=== PATIENT | male | born 1950 | race Caucasian/White ===

== ENCOUNTER → 2024-01-30 06:30 | Day surgery (SDC) | payer MEDICARE, OTHER, SELFPAY | LOC: GI 06:30 | PROVIDERS: ATTENDING PHYSICIAN Surgery | DX: Z12.11 Encounter for screening for malignant neoplasm of colon (principal); K57.30 Diverticulosis of large intestine without perforation or abscess without bleeding; D12.0 Benign neoplasm of cecum; D12.2 Benign neoplasm of ascending colon; D12.3 Benign neoplasm of transverse colon; D12.5 Benign neoplasm of sigmoid colon | CPT/HCPCS: 45385; 45381; 45380; 88305 ==

== ENCOUNTER → 2024-07-15 06:33 | Outpatient (REF) | payer MEDICARE, OTHER, SELFPAY ==
[2024-07-15 08:09] LABS: % Basophils 0.5 % (0-2); % Eosinophils 1.5 % (0-6); % Immature Granulocytes 0.5 % (0-0.5); % Monocytes 9.3 % (1.7-9.3); % Neutrophils 76.2 % (42.2-75.2); Absolute Eosinophils 0.1 10^3/uL (0-0.7); Absolute Monocytes 0.7 10^3/uL (0.1-0.6); Absolute Neutrophils 6.1 10^3/uL (1.4-6.5); Hemoglobin 13.8 g/dL (13.0-18.0); Mean Corp Hgb Conc. 33.7 g/dL (33.0-37.0); Mean Corpuscular Hgb 29.4 pg (27.0-31.0); Mean Corpuscular Volume 87.4 fL (80.0-94.0); Mean Platelet Volume 9.7 fL (7.4-10.4); Nucleated Red Blood Cells % 0 % (-); Platelet Count 253 10^3/uL (130-400); Red Blood Cell Count 4.69 10^6/uL (4.70-6.10); Red Cell Dist. Width 14.6 % (11.5-14.5)
[2024-07-15 08:32] LABS: Blood Urea Nitrogen 26 mg/dl (9-20); Calcium 9.7 mg/dl (8.4-10.2); Carbon Dioxide 29 mmol/L (22-30); Chloride 104 mmol/L (98-107); Glucose 125 mg/dl (70-99); Potassium 4.9 mmol/L (3.5-5.1); Sodium 144 mmol/L (135-145); eGFR > 60.00
[2024-07-15 10:27] LABS: Glycohemoglobin (HgbA1c) 5.8 % (4.0-5.6)
== END ==
LOC: REG 06:33
PROVIDERS: ATTENDING PHYSICIAN Family Medicine; REFERRING PHYSICIAN Specialist
DX: D64.9 Anemia, unspecified (principal); R73.9 Hyperglycemia, unspecified
CPT/HCPCS: 36415; 80048; 83036; 85025

== ENCOUNTER 2024-07-31 06:35 | Emergency (ER) | payer MEDICARE, OTHER, SELFPAY ==
[2024-07-31 06:39] VITALS: BP 180/100
[2024-07-31 07:21] VITALS: BMI 25.9
--- NOTE | 2024-07-31 07:37 | ED.GENMED ---
History of Present Illness
General
Chief Complaint: Abdominal Pain
Source: patient
Exam Limitations: none
Time Seen by Provider: 07/31/24 07:02
Nursing documentation reviewed up to this point in time: agreed with
History of Present Illness
History of Present Illness:
74-year-old male presenting to the emergency department today with concerns of a bulge to his left lower abdomen over the past few days. Has become painful and he is not able to reduce this. Feels similar to previous hernia. Denies changes in
bowel movements nausea vomiting or fevers.
Past History
Past History
ED Past Medical History: HTN, Hypercholesterolemia and Other (prostate )
ED Past Surgical History: Orthopedic
Social History
Tobacco: Former smoker
Alcohol: Occasional
Drug: None
Personal:
Living: with family
Employment: Retired
Family History
Family History: Other
Review of Systems
Review of Systems
Allergies reviewed?: Yes
All Other Systems: ROS reviewed and negative except as documented in HPI and ROS
Phy Exam
Physical Exam
Physical Exam:
GENERAL: Alert , in no apparent distress
EYE: pupils equal and reactive
NECK: Supple, no significant adenopathy.
ENT: o/p clr, mmm.
CARDIAC: Regular rate and rhythm .
LUNGS: Clear breath sounds bilaterally, no acute respiratory distress, no wheezes/rales/rhonchi
ABDOMEN: Mass to the left lower quadrant fluctuant no induration, unable to be reduced. Otherwise soft, without focal tenderness, no r/g, no cvat
NEUROLOGICAL: Alert and oriented, no focal neuro deficits
SKIN: Warm and dry, skin intact.
MUSCULOSKELETAL: No edema, well perfused.
PSYCH: Normal and appropriate interaction.
Course
Orders/Labs/Results
Orders:
Orders
07/31/24 07:14
Iohexol [Omnipaque] See Protocol PO NOW STA
07/31/24 07:15
CT Abd/pel W Iv And Oral Contr Urgent
Comment:
Reason For Exam: left lower abd incarcerated hernia
07/31/24 07:28
Complete Blood Count/With Diff Urgent
Comprehensive Metabolic Panel Urgent
Lactic Acid Urgent
07/31/24 07:59
Urinalysis Reflex To Culture Urgent
Date Specimen was Collected: 07/31/24
Time Specimen was Collected: 07:58
Urine Microscopic Reflex Cult Urgent
Urine Culture Urgent
LATONIA Source: U
Specimen Description:
Obtained by: Random
Date Specimen was Collected: 07/31/24
Time Specimen was Collected: :58
Abnormal Lab Results
07/31/24 07/31/24
07:28 07:59
RBC 4.38 L 10^6/uL
(4.70-6.10)
Hgb 12.5 L g/dL
(13.0-18.0)
Hct 37.9 L %
(39.0-52.0)
Absolute Lymphs (auto) 0.8 L 10^3/uL
(1.2-3.4)
Lymphocytes % 13.7 L %
(20.5-51.1)
Glucose 129 H mg/dl
(70-99)
Total Protein 6.0 L g/dl
(6.3-8.2)
Ur Occult Blood Reflex 3+ A
(Negative)
Leukocyte Esterase Rfl 2+ A
(Negative)
Urine RBC 7-10 A /HPF
(0-2)
Urine WBC (Reflex) 40-50 A /HPF
(0-5)
Urine Bacteria (Reflex) Moderate A
(Negative)
07/31/24 07:28
07/31/24 07:28
Vital Signs
Initial and Last Documented VS:
Initial Vital Signs
Temp Pulse Resp BP Pulse Ox
98.1 F 64 24 180/100 96
07/31/24 06:39 07/31/24 06:39 07/31/24 06:39 07/31/24 06:39 07/31/24 06:39
Last Documented Vital Signs
Temp Pulse Resp BP Pulse Ox
98.1 F 64 24 180/100 98
07/31/24 06:39 07/31/24 06:39 07/31/24 06:39 07/31/24 06:39 07/31/24 07:33
MDM/Problems Addressed
MDM/Problems Addressed:
74-year-old male presenting to the emergency department today with concerns of potential hernia to the left lower quadrant of the abdomen. Nonreducible over the past 4 days. Here unable to reduce likely hernia. Plan for CT scan for further
assessment. CT scan confirming spigelian hernia unable to be reduced here. Case discussed with general surgery they would like to see him in the office tomorrow but otherwise stable for discharge considering no evidence of strangulation,
obstruction. Patient with no ongoing discomfort. Patient's urine did show white blood cells and bacteria but he does not have any urinary symptoms at this time. Patient was not started on antibiotics and can follow-up otherwise.
*Critical Care Note
Total Time (30-74mins, 75-104mins- exclusive of procedures): Not Applicable
ED Attending Note
-
Portions of this chart may have been created with voice recognition software.� Occasional wrong word or��sound alike� substitutions may have occurred due to the inherent limitations of voice recognition software.
Discharge Plan
Departure
Patient Disposition: Home (Routine Discharge)
Date of Disposition: 07/31/24
Time of Disposition: 10:43
Patient with high blood pressure during this ER visit?: No
Condition: Good
Covid-19: Not Applicable
Discharge Problem:
Spigelian hernia
Instructions: Abdominal Hernia
Prescriptions:
No Action
losartan 50 mg Tablet
50 mg PO DAILY
therapeutic multivitamin Tablet
1 tab PO DAILY
aspirin 81 mg Tablet,Delayed Release (Dr/Ec)
81 mg PO DAILY
acetaminophen [Tylenol Extra Strength] 500 mg Tablet
1,000 mg PO BIDPRN PRN (Reason: fever)
tamsulosin 0.4 mg Capsule
0.4 mg PO HS
finasteride 5 mg Tablet
5 mg PO DAILY
Sleep Aid
1 tab PO HSPRN PRN (Reason: sleep)
sodium chloride 0.9 % (flush) [Normal Saline Flush] Syringe
5 ml intra-catheter DAILY 30 Days Qty: 150 0RF
Rx Instructions:
forward flush drain
aspirin [Children's Aspirin] 81 mg Tablet,Chewable
81 mg PO DAILY Qty: 0 0RF
amoxicillin-pot clavulanate 875-125 mg tablet
1 tab PO Q12H Qty: 20 0RF
Referrals:
Marielos Luna MD [Family Provider] -
Activity Restrictions/Additional Instructions:
You came to the emergency department today with concerns of a hernia to your abdomen. This was discussed with general surgery who would like to see in the office tomorrow or the next few days. Return to the emergency department for any worsening,
new or concerning symptoms.
Interventions
Interventions:
*Risk Screen - Suicide Last Done: 07/31/24 06:39
*General Assessment Last Done: 07/31/24 07:32
*Neglect/Abuse Screening Last Done: 07/31/24 06:39
ED- Fall Risk Assessment Last Done: 07/31/24 07:35
*ED COVID-19 Vaccine History Last Done: 07/31/24 07:34
Discharge Date and Time
Print Language: LITHUANIAN
[2024-07-31] MEDS: OMNIPAQUE 50 ML PO (07:49)
[2024-07-31 07:50] LABS: % Basophils 0.5 % (0-2); % Eosinophils 2.5 % (0-6); % Immature Granulocytes 0.4 % (0-0.5); % Lymphocytes 13.7 % (20.5-51.1); % Monocytes 8.5 % (1.7-9.3); % Neutrophils 74.4 % (42.2-75.2); Absolute Eosinophils 0.1 10^3/uL (0-0.7); Absolute Lymphocytes 0.8 10^3/uL (1.2-3.4); Absolute Monocytes 0.5 10^3/uL (0.1-0.6); Absolute Neutrophils 4.1 10^3/uL (1.4-6.5); Hematocrit 37.9 % (39.0-52.0); Hemoglobin 12.5 g/dL (13.0-18.0); Mean Corpuscular Hgb 28.5 pg (27.0-31.0); Mean Corpuscular Volume 86.5 fL (80.0-94.0); Mean Platelet Volume 9.6 fL (7.4-10.4); Nucleated Red Blood Cells % 0 % (-); Platelet Count 285 10^3/uL (130-400); Red Blood Cell Count 4.38 10^6/uL (4.70-6.10); White Blood Cell Count 5.6 10^3/uL (4.8-10.8)
[2024-07-31 08:07] LABS: Lactic Acid 1.1 mmol/L (0.7-2.0)
[2024-07-31 08:10] LABS: ALT (SGPT) 15 U/L (0-50); AST (SGOT) 24 U/L (17-59); Albumin 3.5 g/dl (3.5-5.0); Alkaline Phosphatase 64 U/L (38-126); Blood Urea Nitrogen 17 mg/dl (9-20); Calcium 9.3 mg/dl (8.4-10.2); Carbon Dioxide 28 mmol/L (22-30); Chloride 104 mmol/L (98-107); Estimated Creatinine Clearance 109 ml/min; Glucose 129 mg/dl (70-99); Potassium 4.5 mmol/L (3.5-5.1); Sodium 140 mmol/L (135-145); Total Bilirubin 0.4 mg/dl (0.2-1.3); eGFR > 60.00
[2024-07-31 08:12] LABS: Urine Albumin Trace (Neg - Trace); Urine Bilirubin Negative (Negative); Urine Character Slightly Cloudy (Clear); Urine Color Yellow; Urine Glucose Negative (Negative); Urine Ketone Negative (Negative); Urine Leukocyte 2+ (Negative); Urine Nitrite Negative (Negative); Urine Occult Blood 3+ (Negative); Urine Specific Gravity 1.015 (<1.030); Urine Urobilinogen Negative (Neg - 1+)
[2024-07-31 08:21] LABS: Urine Bacteria Moderate (Negative); Urine White Cell 40-50 /HPF (0-5)
[2024-07-31 11:35] VITALS: BP 141/75
== END 2024-07-31 11:36 | disposition home or self-care (01) ==
LOC: EMR 06:35
PROVIDERS: Physician Assistant; EMERGENCY PHYSICIAN Student in an Organized Health Care Education/Training Program; FAMILY PHYSICIAN Family Medicine
DX: R10.9 Unspecified abdominal pain (principal); I10 Essential (primary) hypertension; E78.00 Pure hypercholesterolemia, unspecified; Z87.891 Personal history of nicotine dependence
CPT/HCPCS: 99284; 74177; 80053; 81003; 81015; 83605; 85025; 87086; Q9967

== ENCOUNTER 2024-08-03 21:27 | Inpatient (IN) | payer MEDICARE, OTHER, SELFPAY ==
[2024-08-03] VITALS (9 sets, daily range): BP systolic 104–161; BP diastolic 46–78; BMI 25.0; BMI 25.1
--- NOTE | 2024-08-03 16:48 | ED.GENMED ---
History of Present Illness
General
Chief Complaint: Abdominal Pain
Source: patient and spouse
Time Seen by Provider: 08/03/24 16:24
History of Present Illness
History of Present Illness:
This patient is a 74-year-old male with a history of an intra-abdominal abscess status post diverticulitis for which he received a drain and prolonged antibiotics. This was in November. He states that ever since then he is just never felt quite
right, described as overall malaise and a 20 pound weight loss. On Monday, patient noted a 'bulge at the left lateral aspect of his abdomen which prompted his visit to the emergency department. At that time, he was recovering from a URI and
noted frequent coughing which she thinks contributed to what he suspected was a hernia. Upon evaluation here patient was diagnosed with a hernia and in consultation with surgery was referred to the surgeon the next day. On , the next day,
patient saw surgery and after review of films and patient in consultation with his colleagues the surgeon suspected that the 'bulge' was not actually a hernia but rather a collection of air because the area where the drain was inserted never fully
closed as per . He was prescribed Augmentin and told to follow-up with colorectal. He called colorectal on Monday and was given an appointment for Monday. However, they have continued concerns that he may have a recurrent abscess. They spoke
to the surgeon today and was referred to the emergency department specifically to receive a CAT scan to rule out a brewing abscess.
Past History
Past History
ED Past Medical History: HTN, Hypercholesterolemia and Other (BPH)
ED Past Surgical History: Orthopedic and Urological
Social History
Tobacco: Former smoker
Alcohol: Occasional
Drug: None
Personal:
Living: with family
Employment: Retired
Family History
Family History: Other
Phy Exam
Physical Exam
Physical Exam:
GENERAL: Alert , in no apparent distress
EYE: pupils equal and reactive
NECK: Supple, no significant adenopathy.
ENT: o/p clr, mmm.
CARDIAC: Regular rate and rhythm .
LUNGS: Clear breath sounds bilaterally, no acute respiratory distress, no wheezes/rales/rhonchi
ABDOMEN: Soft, without focal tenderness, no r/g. There is an area at left inferior abd with ?hernia like swelling and overlying mild erythema/warmth, no fluctuance, nontnder to palpation
NEUROLOGICAL: Alert and oriented, no focal neuro deficits
SKIN: Warm and dry, skin intact.
MUSCULOSKELETAL: No edema, well perfused.
PSYCH: Normal and appropriate interaction.
Course
Orders/Labs/Results
Orders:
Orders
08/03/24 16:55
CT Abd/pel W Iv And Oral Contr Urgent
Comment:
Reason For Exam: recent hernia dx, surgeon concern for abscess
Cardiac Monitoring- Treatment ONCE
Iohexol [Omnipaque] See Protocol PO NOW STA
08/03/24 17:18
Complete Blood Count/No Diff Urgent
Comprehensive Metabolic Panel Urgent
Lactic Acid Urgent
Urinalysis Reflex To Culture Urgent
Date Specimen was Collected: 08/03/24
Time Specimen was Collected: 17:06
Urine Microscopic Reflex Cult Urgent
Blood Culture Routine
LATONIA Source: Blood/Venous
Specimen Description:
Blood Culture Urgent
LATONIA Source: Blood/Venous
Specimen Description:
Urine Culture Urgent
LATONIA Source: U
Specimen Description:
Date Specimen was Collected: 08/03/24
Time Specimen was Collected: 17:06
08/03/24 19:24
Acetaminophen [Tylenol] 1,000 mg .ROUTE .STK-MED ONE
08/03/24 19:26
Acetaminophen [Tylenol] 1,000 mg PO NOW STA
Abnormal Lab Results
08/03/24
17:18
WBC 13.3 H 10^3/uL
(4.8-10.8)
BUN 21 H mg/dl
(9-20)
Glucose 114 H mg/dl
(70-99)
Ur Occult Blood Reflex 3+ A
(Negative)
Leukocyte Esterase Rfl 2+ A
(Negative)
Urine RBC 40-50 A /HPF
(0-2)
Urine WBC (Reflex) 26-30 A /HPF
(0-5)
Urine Bacteria (Reflex) Many A
(Negative)
08/03/24 17:18
08/03/24 17:18
Vital Signs
Initial and Last Documented VS:
Initial Vital Signs
Temp Pulse Resp BP Pulse Ox
99.3 F 76 18 161/78 95
08/03/24 16:15 08/03/24 16:15 08/03/24 16:15 08/03/24 16:15 08/03/24 16:15
Last Documented Vital Signs
Temp Pulse Resp BP Pulse Ox
101.6 F H 90 19 121/69 95
08/03/24 19:23 08/03/24 20:00 08/03/24 20:00 08/03/24 20:00 08/03/24 20:00
Update Note
Update Note:
Patient presents to the Emergency Department with ____'bulge' at left lower abdomen
Number and Complexity of Problems Addressed at the Encounter
� Chronic conditions affecting care:
� Acute Exacerbation and/or Progression of Chronic Illness:
� Differential Diagnosis includes: But not limited to hernia, abscess, diverticulitis, etc. etc.
Amount and/or Complexity of Data to be Reviewed and Analyzed
� I performed an independent evaluation of and my interpretation is:
EKG:
CT:ACUTE DIVERTICULITIS in the PROXIMAL SIGMOID COLON with evidence for posterior wall perforation and a sinus tract extending posteriorly into the left iliopsoas muscle communicating with a LARGE 11.5 cm ABSCESS in the left
iliopsoas muscle extending laterally over the left iliac crest into the left lower lateral abdominal wall.
2. Severe diverticulosis throughout the descending and sigmoid colon.
3. Multiple urinary bladder diverticula and moderate diffuse urinary bladder wall thickening suggesting chronic outlet obstruction.
4. Mild small bowel ileus.
5. Cholelithiasis.
6. Mild biliary dilatation.
7. Mild diffuse hepatic steatosis.
8. Mild polycystic kidney disease.
9. 2.2 cm left adrenal adenoma.
10. 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
Xrays:
Laboratory Studies: new leukocytosis, ua suspicious for uti
Other:
� Review of other/old records reveals: Discharge summary from November 2023 reviewed indicating patient had a sigmoid diverticulitis with left iliopsoas abscess
� Clinical information was obtained by an independent historian: who is bedside
� Prescriptions/Medications Considered but not given:
� Further testing considered but not performed:
Risk of Complications and/or Morbidity or Mortality of Patient Management
� Social determinants of health affecting care:
� Discussion with other providers (PCP, Hospitalists, Consultants, etc):
� Escalation of care including admission/observation vs risk of discharge considered: Case discussed with Dr. Hicks from surgery, aware of CT, history, physical, etc. Agrees with plan for antibiotics, IR in a.m. and admit to
hospitalist. Case discussed with hospitalist for admission. Case discussed with interventional radiology to make him aware for case tomorrow. Reassessment of patient 8:33 PM patient remained stable, pleasant, abdomen soft with minimal tenderness
no rebound or guarding.
ED Attending Note
-
Portions of this chart may have been created with voice recognition software.� Occasional wrong word or��sound alike� substitutions may have occurred due to the inherent limitations of voice recognition software.
Discharge Plan
Departure
Patient Disposition: Admit
Date of Disposition: 08/03/24
Time of Disposition: 20:32
Admit to: Med/Surg
Admit to doctor: [email or web address]
Presentation/result/management discussed w/ accepting MD/DO: Hospitalist
Discharge Problem:
diverticulitis with abscess
Prescriptions:
No Action
losartan 50 mg Tablet
50 mg PO DAILY
therapeutic multivitamin Tablet
1 tab PO DAILY
aspirin 81 mg Tablet,Delayed Release (Dr/Ec)
81 mg PO DAILY
acetaminophen [Tylenol Extra Strength] 500 mg Tablet
1,000 mg PO BIDPRN PRN (Reason: fever)
Sleep Aid
1 tab PO HSPRN PRN (Reason: sleep)
amoxicillin-pot clavulanate 875-125 mg tablet
1 tab PO Q12H Qty: 20 0RF
Referrals:
Marielos Luna MD [Family Provider] -
Interventions
Interventions:
*Risk Screen - Suicide Last Done: 08/03/24 16:15
*General Assessment Last Done: 08/03/24 16:15
*Neglect/Abuse Screening Last Done: 08/03/24 16:15
ED- Fall Risk Assessment Last Done: 08/03/24 17:30
*ED COVID-19 Vaccine History Last Done: 08/03/24 17:30
HY-Euxxhm-Jwubrcqvdl Assessment Last Done: 08/03/24 17:30
Discharge Date and Time
Print Language: DANISH
[2024-08-03] MEDS: OMNIPAQUE 50 ML PO (17:13)
[2024-08-03 17:36] LABS: Urine Albumin Trace (Neg - Trace); Urine Bilirubin Negative (Negative); Urine Character Slightly Cloudy (Clear); Urine Color Yellow; Urine Glucose Negative (Negative); Urine Ketone Negative (Negative); Urine Leukocyte 2+ (Negative); Urine Nitrite Negative (Negative); Urine Occult Blood 3+ (Negative); Urine Urobilinogen Negative (Neg - 1+)
[2024-08-03 17:43] LABS: Hematocrit 39.2 % (39.0-52.0); Hemoglobin 13.2 g/dL (13.0-18.0); Mean Corp Hgb Conc. 33.7 g/dL (33.0-37.0); Mean Corpuscular Hgb 28.1 pg (27.0-31.0); Mean Corpuscular Volume 83.4 fL (80.0-94.0); Mean Platelet Volume 9.2 fL (7.4-10.4); Platelet Count 328 10^3/uL (130-400); Red Cell Dist. Width 14.1 % (11.5-14.5); White Blood Cell Count 13.3 10^3/uL (4.8-10.8)
[2024-08-03 17:49] LABS: Lactic Acid 0.9 mmol/L (0.7-2.0); Urine Bacteria Many (Negative); Urine Red Blood Cell 40-50 /HPF (0-2); Urine White Cell 26-30 /HPF (0-5)
[2024-08-03 17:50] LABS: ALT (SGPT) 20 U/L (0-50); AST (SGOT) 24 U/L (17-59); Albumin 3.9 g/dl (3.5-5.0); Alkaline Phosphatase 79 U/L (38-126); Blood Urea Nitrogen 21 mg/dl (9-20); Calcium 9.5 mg/dl (8.4-10.2); Carbon Dioxide 26 mmol/L (22-30); Chloride 102 mmol/L (98-107); Estimated Creatinine Clearance 85 ml/min; Glucose 114 mg/dl (70-99); Potassium 4.3 mmol/L (3.5-5.1); Sodium 138 mmol/L (135-145); Total Bilirubin 0.8 mg/dl (0.2-1.3); Total Protein 6.6 g/dl (6.3-8.2); eGFR > 60.00
[2024-08-03] MEDS: TYLENOL 1000 MG PO (19:26)
--- NOTE | 2024-08-03 20:52 | HPS.HSE ---
Family Physician
-
Family Physician: Marielos Luna MD
Chief Complaint
-
Fever and abdominal bulging
History of Present Illness
This is a 34-year-old with past medical history of diverticulitis complicated by abscess, BPH status post laser resection in May, hyperlipidemia, hypertension who presents to the emergency department for fever and abdominal swelling after being
evaluated by hernia repair surgeon.
Patient was seen in the emergency department July 31 for abdominal bulging. A CT scan was done and patient was noted to have hernia which could not be reduced to the emergency department. He had follow-up with his surgeon. Patient stated
that prior to coming to the ED he had traveled and noticed a bulging at that time. Upon arrival he started having fevers for which he was taking Tylenol. He thought the bulging was not hernia because it occurred during an episode of coughing.
However as the bulging was not reducing the patient came to the emergency department for evaluation. He denied other symptoms such as abdominal pain nausea or vomiting. Similar episode noted in November when he had amount of indolent fevers until
he was diagnosed with diverticulitis complicated by abscess treated by IR drainage and had follow-up with colorectal surgery. Since then the patient has had ongoing fatigue and not felt himself with has been fever free.
In May he was found to have bladder stones and underwent cystoscopy with with was noted to have a large prostate is status post laser resection. Patient currently denies any urinary symptoms including dysuria hematuria frequency or urgency.
On arrival in the emergency department today he was febrile to 100.1, he was hemodynamically stable with a blood pressure of 121/69, pulse of 90 and normal oxygen saturation on room air. He has a white count of 13,000 with normal hemoglobin and
platelet counts. Electrolytes BUN/creatinine are all within normal limits. LFTs within normal limits. UA again is markedly positive with leukocyte esterase WBCs and bacteriuria. Lactic acid is normal.
CT of the abdomen showing acute diverticulitis of the proximal sigmoid colon with evidence for posterior wall perforation and a sinus tract extending posteriorly into the left iliopsoas muscle communicating with a LARGE 11.5 cm ABSCESS in the left
iliopsoas muscle extending laterally over the left iliac crest into the left lower lateral abdominal wall.
Additionally, the inflamed diverticulum is surrounded by inflammation and there is a bubble of extraluminal air surrounded by inflammation suggesting perforated diverticulitis. There is a sinus tract extending posteriorly from the sigmoid colon into
the left iliopsoas muscle. The sinus tract communicates with a large abscess in the anterior aspect of the left iliopsoas muscle which extends laterally over the superior aspect of the left iliac crest in the left lateral abdominal wall. The large
abscess measures 5.0 x 11.5 x 4.8 cm in AP, transverse, and craniocaudal dimensions and contains air and complex fluid. There is rim-enhancing enhancement of the wall around the abscess. There is a lateral bulge in the left lower abdominal wall
superior to the iliac crest at the site of the protruding abscess.
There is mild to moderate diffuse thickening of the wall of the urinary bladder. There is a 2.6 x 3.5 cm diverticulum protruding from the right posterior superior urinary bladder wall and a 3 cm diverticulum protruding from the right superolateral
urinary bladder wall. There is suture material located in the lower anterior pelvic wall suggesting previous hernia repair. There is no peritoneal fluid or lymphadenopathy in the pelvis.
Medical History
Past Medical History
Past Medical History: Reports HTN and Hypercholesterolemia
Additional Past Medical History:
Diverticulitis
BPH
Past Surgical History: Reports None
Social History
Tobacco: Non-smoker
Alcohol: None
Drug: None
Personal:
Living: With Family
Employment: Retired
Family History
Family History: Not pertinent
Allergies / Home Medications
Allergies reflects when Allergies were last updated in [facility].
Home Medications with original date entered in [facility]
Allergy/Medication List:
Allergies
Allergy/AdvReac Type Severity Reaction Status Date / Time
No Known Allergies Allergy Verified 07/31/24 06:43
Home Medications
Sleep Aid 1 tab PO HSPRN PRN sleep 12/01/23
acetaminophen 500 mg tablet (Tylenol Extra Strength) 1,000 mg PO BIDPRN PRN fever 12/01/23
aspirin 81 mg tablet,delayed release 81 mg PO DAILY 12/01/23
losartan 50 mg tablet 50 mg PO DAILY 12/01/23
therapeutic multivitamin 1 tab PO DAILY 12/01/23
amoxicillin 875 mg-potassium clavulanate 125 mg tablet 1 tab PO Q12H #20 tabs 12/04/23
Review of Systems
-
History Source: Patient
Constitutional: Reports Fever and Fatigue
EENT: Reports No Symptoms
Respiratory: Reports No Symptoms
Cardiac: Reports No Symptoms
Abdomen/GI: Reports Other (bulging)
: Reports No Symptoms
Musculoskeletal: Reports No Symptoms
Skin: Reports No Symptoms
Neurological: Reports No Symptoms
Endocrine: Reports No Symptoms
Hematologic/Lymphatic: Reports No Symptoms
Psych: Reports No Symptoms
Physical Exam
Vital Signs
Vital Signs
Temp Pulse Resp BP Pulse Ox
100.1 F 90 19 121/69 95
08/03/24 20:19 08/03/24 20:00 08/03/24 20:00 08/03/24 20:00 08/03/24 20:00
Physical Exam
General: No Apparent Distress
HEENT: NormoCephalic, Anicteric, Moist mucous membranes and Atraumatic
Respiratory: Clear
Cardiac: S1/S2 and Regular Rhythm
Breast: Deferred by me
GI: Soft, Non Tender, Normal Bowel Sounds, Distended and Other (left lower abdominal protrusion of about 5 cm in diameter with overlying skin that is warm and mildy erythematous. Non-tender. )
Rectal: Deferred by Provider
Genito-urinary: Deferred by me
Musculoskeletal: No Clubbing, No Cyanosis and No Edema
Skin: Warm
Neuro: AO x 3
Hematologic/Lymphatic: No Lymphadenopathy
Psych: Calm
Laboratory Results
-
08/03/24 17:18
08/03/24 17:18
Laboratory Results
Lactic Acid 0.9 mmol/L (0.7-2.0) 08/03/24 17:18
Total Bilirubin 0.8 mg/dl (0.2-1.3) 08/03/24 17:18
AST 24 U/L (17-59) 08/03/24 17:18
ALT 20 U/L (0-50) 08/03/24 17:18
Alkaline Phosphatase 79 U/L (38-126) 08/03/24 17:18
Data Reviewed
-
CT Scan: Report Reviewed by me
Lab Data: Labs Reviewed by me
Old Records: Reviewed
Impression/Plan
-
IMPRESSION:
74 y.o with h/o acute perforated diverticultitis in november 2023 tx with IR drainage comes back with fever, malaise and a abdominal wall hernia. Has low grade temps here and leukocytosis. CT with findings of acute sigmoid diverticulitis
complicated by perforation an da large abscess in the left iliopsoas muscle. He is non-toxic appearing and hemodynamically stable.
PLAN:
1. Acute complicated sigmoid diverticulitis - Recurrent acute diverticulitis complicated by posterior wall perforation and a sinus tract extending posteriorly into the left iliopsoas muscle communicating with a LARGE 11.5 cm ABSCESS in the left
iliopsoas muscle extending laterally over the left iliac crest into the left lower lateral abdominal wall. Patient without sirs and is non-toxic in appearance. He is already on Augmentin. Prior abscess culture with polymicrobial findings (E.coli,
proteus
- admit to med/surg
- NPO for now
- d/w surgery-> Zosyn
- blood cultures
- IR consult for drainage
- surgery consult
2. Recurrent Bacteruria - Asymptomatic? bacteruria and pyuria x2. fever and leukocytosis likely secondary to abscess but can't rule out cystitis. Has bladder diverticula which may explain the findings. Already on augmentin
- negative growth from 07/31
- urine cultures repeated today
- monitor for symptoms
3. Hernia - Left abdominal wall hernia
- monitor for now
- f/u with gen surgeon
4. HTN
- continue losartan with hold parameters
DVT PPX - lovenox sq
Code status - Full Code
[2024-08-03] MEDS: ZOSYN 50 IV (20:53)
--- NOTE | 2024-08-03 22:00 | PTCARENOTE ---
Pt. admitted from E.D. in wheelchair, AAO x 3, vs stable, skin intact, IVF's started, call queen within reach.
[2024-08-03] MEDS: D5LR 1000 IV (22:05)
[2024-08-04] MEDS: ZOSYN 50 IV ×4 (01:57→20:24)
[2024-08-04] MEDS: TYLENOL 650 MG PO ×3 (01:57→20:31)
[2024-08-04 07:00] VITALS: BP 121/68
[2024-08-04 07:02] LABS: Hematocrit 34.7 % (39.0-52.0); Hemoglobin 11.6 g/dL (13.0-18.0); Mean Corp Hgb Conc. 33.4 g/dL (33.0-37.0); Mean Corpuscular Hgb 28.1 pg (27.0-31.0); Mean Platelet Volume 9.8 fL (7.4-10.4); Platelet Count 296 10^3/uL (130-400); Red Blood Cell Count 4.13 10^6/uL (4.70-6.10); Red Cell Dist. Width 14.2 % (11.5-14.5); White Blood Cell Count 11.6 10^3/uL (4.8-10.8)
[2024-08-04 07:30] LABS: Blood Urea Nitrogen 19 mg/dl (9-20); Carbon Dioxide 28 mmol/L (22-30); Chloride 100 mmol/L (98-107); Estimated Creatinine Clearance 85 ml/min; Glucose 129 mg/dl (70-99); Magnesium 2.2 mg/dl (1.6-2.3); Potassium 4.1 mmol/L (3.5-5.1); Sodium 138 mmol/L (135-145); eGFR > 60.00
--- NOTE | 2024-08-04 08:38 | W.PN.HOSP.TC ---
Today's Communication/Plan
-
For abscess drainage by IR today
Assessment / Plan
Assessment / Plan
1. Acute complicated sigmoid diverticulitis - Recurrent acute diverticulitis complicated by posterior wall perforation and a sinus tract extending posteriorly into the left iliopsoas muscle communicating with a LARGE 11.5 cm ABSCESS in the left
iliopsoas muscle extending laterally over the left iliac crest into the left lower lateral abdominal wall. Patient without sirs and is non-toxic in appearance. He is already on Augmentin. Prior abscess culture with polymicrobial findings (E.coli,
proteus
-Appreciate general surgery and IR input
-For drainage of abscess today by IR
-Continue IV Zosyn, follow-up on cultures when obtained
-Trend fever and white count
2. Recurrent Bacteruria - Asymptomatic? bacteruria and pyuria x2. fever and leukocytosis likely secondary to abscess but can't rule out cystitis. Has bladder diverticula which may explain the findings. 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
- negative growth from 07/31
- urine cultures repeated 08/03
- monitor for symptoms
3. Hernia - Left abdominal wall hernia
- monitor for now
- f/u with gen surgeon
4. HTN
- continue losartan with hold parameters
DVT PPX - lovenox sq
Code status - Full Code
Total time spent to see the patient on the floor, examine the patient, review data and lab results, discuss treatment plan with patient, nursing staff around 38 minutes.
Physical Exam
General: No acute distress
HEENT: Normocephalic, Atraumatic, EOMI, MMM
Respiratory: Clear to Auscultation bilaterally
Cardiac: Normal S1/S2, Regular Rate and Rhythm
GI: Soft, Nontender, abscess noted on abdominal wall and left lower quadrant
Extremities: No Clubbing, Cyanosis, or Edema
Neuro: Nonfocal/Grossly Intact
Psych: Calm, Cooperative
Derm: No Visible lesions
Anticipated Discharge: 24 - 48 hours
Subjective/Interval History
-
Date of Service: August 04, 2024
Patient denies abdominal pain. No nausea, no vomiting. He continues to be febrile.
Objective Data
-
Labs:
Laboratory Results
08/04/24
05:13
WBC 11.6 H
Hgb 11.6 L
Hct 34.7 L
Plt Count 296
Sodium 138
Potassium 4.1
Chloride 100
Carbon Dioxide 28
BUN 19
Creatinine 0.9
Glucose 129 H
Calcium 9.0
Vital Signs:
Vital Signs
Temp Pulse Resp BP Pulse Ox
97.4 F 62 18 104/55 96
08/03/24 23:00 08/03/24 23:00 08/03/24 23:00 08/03/24 23:00 08/03/24 23:00
I&O
08/03/24 08/04/24 08/05/24
06:59 06:59 06:59
Intake Total 910 / 910
Output Total 400 / 400
Balance 510 / 510
[2024-08-04] MEDS: ASPIR LOW (ENTERIC COATED) 81 MG PO (08:58)
[2024-08-04] MEDS: COZAAR 50 MG PO (08:58)
--- NOTE | 2024-08-04 10:33 | CON.CRS ---
Addendum entered and electronically signed by Sumanth Euceda MD 08/04/24 11:13:
Patient seen examined. Agree with assessment plan as documented below.
Patient is a 74 yo M with a PMH of HTN and diverticulitis c/b abscess formation back in 11/2023. He underwent IR drainage at that time. Ultimately his IR drain was removed later that month. He then subsequently underwent a colonoscopy in January by
Dr. Castro which demonstrated several tubular adenomas. Discussion at that time regarding a watchful waiting approach versus surgical management with partial colectomy. Ultimate decision for a more watchful waiting approach. He states that he is
never felt fully back to normal. Over the past several weeks he has developed worsening swelling and discomfort of his LLQ. He presented to the ED on 07/31 where he underwent a CT scan which was read as a spigelian hernia. He was referred to
general surgery as an outpatient. This area of swelling was most consistent with a developing abscess likely related to a persistent fistulous connection to the colon. He was placed on Augmentin at that time. A follow-up was scheduled with "Carol"Matthew early this coming week. Over the past 24 hours he has developed worsening fevers. Denies any generalized abdominal pain. Denies any nausea or vomiting. He continues to move his bowels.
Gen: NAD
Abd: soft, NT/ND, non-peritoneal, LLQ/flank with area of swelling, induration, blanching erythema, pain, no active drainage
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
Prior history was reviewed with the patient. Current CT and labs were reviewed. Needs repeat source control and management of his LLQ abscess. Options for IR drainage versus surgical drainage were considered and discussed. The pros and cons of
both approaches was discussed. Specifically, we discussed failure of IR drainage to adequately drain and manage the abscess (limitations with drain character and loculations) versus issues with a chronic nonhealing wound and skin issues with
surgical drainage. Recommend and plan for initial attempt at management by IR. We discussed the potential need for surgical drainage in the future. We also discussed the potential need for maintaining IR drainage until definitive surgical
management. Patient acknowledges understanding. All questions answered.
--IR drain placement and cultures today
--C/W abx
--Trend labs/exams
--NPO for now then OK for CLD after IR procedure
--Medical management as per primary team
Original Note:
Consultation
-
Date/Time Consultation Requested: 08/03/242150
Requesting Provider: Darci
Medical History
-
Chief Complaint: fevers
History of Present Illness:
Mr. Duvall is a 74 yo male with a h/o HTN and diverticulitis complicated by abscess in November of this year. IR drain was placed at that time for management with noted improvement and drain was subsequently removed with follow up colonoscopy in
January by Dr. Castro demonstrating diverticular disease with polypectomy preformed. He notes that he has not felt quite well since November. He denies nausea, vomiting or diarrhea. He denies significant pain. He did note bulging to the LLQ and
presented to the ED on 07/[address] at that time read as a spigelian hernia and he was referred to surgery for follow up. He say Dr. Padilla in the outpatient setting the following day and further imaging review at that time was done with
noted concern for a colo-cutaneous fistula with air accumulating under his skin following the old drain tract an not a hernia. He was started on ABX with plan to follow up with Dr. Castro tomorrow to discuss plan of care moving forward with
instructions to present to the ED if symptoms worsened or he developed fevers. He unfortunately did develop fevers over the weekend and presented for evaluation. On exam, there is a bulging reddened area to the LLQ otherwise exam benign. He denies
nausea, vomiting, bowel or bladder changes.
Past Medical History
Past Medical History: Diverticulitis, HTN, Hypercholesterolemia and Other (BPH with LUTS)
Past Surgical History: Orthopedic (shoulders) and Tonsilectomy
Social History
Tobacco: Former Smoker
Alcohol: None
Living: With Family
Family History
Family History: Other (No colon cancer in the family)
Allergies / Home Medications
Allergy/AdvReac Type Severity Reaction Status Date / Time
No Known Allergies Allergy Verified 07/31/24 06:43
�Medication �Instructions �Recorded �Confirmed �Type
Sleep Aid 1 tab PO HSPRN PRN sleep 12/01/23 08/03/24 History
acetaminophen 500 mg tablet 1,000 mg PO BIDPRN PRN fever 12/01/23 08/03/24 History
(Tylenol Extra Strength)
aspirin 81 mg tablet,delayed 81 mg PO DAILY 12/01/23 08/03/24 History
release
losartan 50 mg tablet 50 mg PO DAILY 12/01/23 08/03/24 History
therapeutic multivitamin 1 tab PO DAILY 12/01/23 08/03/24 History
amoxicillin 875 mg-potassium 1 tab PO Q12H #20 tabs 12/04/23 08/03/24 Rx
clavulanate 125 mg tablet
Review of Systems
-
History Source: Patient
All other systems: Negative unless noted
A 10 point review of systems was completed, and was negative except as per HPI.
Physical Exam
Vital Signs
Temp 98.6 F 08/04/24 07:00
Pulse 75 08/04/24 07:00
Resp Rate 18 08/04/24 07:00
Blood pressure 121/68 08/04/24 07:00
SaO2 94 08/04/24 07:00
08/03/24 08/04/24 08/05/24
06:59 06:59 06:59
Actual Weight 90.945 kg
Body Mass Index (BMI) 25.1
Lab Results / Allergies
08/04/24 05:13
08/04/24 05:13
WBC 11.6 10^3/uL (4.8-10.8) H 08/04/24 05:13
Hgb 11.6 g/dL (13.0-18.0) L 08/04/24 05:13
Hct 34.7 % (39.0-52.0) L 08/04/24 05:13
Plt Count 296 10^3/uL (130-400) 08/04/24 05:13
Allergy/AdvReac Type Severity Reaction Status Date / Time
No Known Allergies Allergy Verified 07/31/24 06:43
Physical Exam
General: Well Developed and Well Nourished
HEENT: Moist Mucous Membranes
GI: Soft, Non Tender, Non Distended and Other (Bulging area to the LLQ with overlying skin changes/erythema)
Skin: Warm and Dry
Neuro: Awake, Alert and AO x 3
Psych: Calm
Data Reviewed
-
CT Scan: Image Personally Visualized and interpreted, Report Reviewed by me and Discussed with Patient
Labs: Labs Reviewed by me, Discussed with Physician and Discussed with Patient
Old Records: Reviewed
Assessment / Plan
-
Mr. Duvall is a 74 yo male with a h/o HTN and diverticulitis complicated by abscess in November of this year. IR drain was placed at that time for management with noted improvement and drain was subsequently removed with follow up colonoscopy in
January by Dr. Castro demonstrating diverticular disease with polypectomy preformed. He was evaluated for bulging to the LLQ in the ED on 07/31. CT at that time read as a spigelian hernia and he was referred to surgery for follow up. He say Dr. Padilla
in the outpatient setting 08/01 and further imaging review at that time was done with noted concern for a colo-cutaneous fistula with air accumulating under his skin following the old drain tract an not a hernia and Augmentin started with follow up
planned with CRS tomorrow. He developed fevers in the interim and presents for evaluation. Palpable lump to LLQ with erythema, not drainage. Tmax of 101.6, Leukocytosis present but trending down.
--Will plan IR drain placement and cultures today
--C/W abx
--Trend labs/exams
--NPO for now then Ok for CLD after IR procedure
--Medical mangement as per primary team
[2024-08-04] MEDS: D5LR 1000 IV (11:08)
[2024-08-04 11:27] VITALS: BP 144/75; BP_SYST 87
--- NOTE | 2024-08-04 12:10 | W.PN.UPDATE ---
Update Note
Progress Note Update
US guided abscess drain placed, yielding 70 cc of pus and air. Drain placed into the deepest portion of the abscess, and also drained the more superficial component.
[2024-08-04 12:22] VITALS: BP 136/71; BP_SYST 99
--- NOTE | 2024-08-04 13:31 | CM ---
manager transfer reviewed patient's chart and met with patient and spouse at bedside. Patient lives with spouse in a 2 story home, patient is independent with adl's and ambulation, no dme, patient drives, per patient he maybe discharged to home with a
drain and is agreeable to visiting nurses from [facility], referral sent to [facility].
Pharmacy: [facility]
PCP: Marielos Luna
Plan; Home with [facility].
[2024-08-04 15:15] VITALS: BP 99/51
[2024-08-04] MEDS: LOVENOX 40 MG SC (18:28)
[2024-08-04 23:14] VITALS: BP 114/52
[2024-08-05] MEDS: D5LR 1000 IV (00:30)
[2024-08-05] MEDS: ZOSYN 50 IV ×2 (01:58→08:01)
[2024-08-05 07:25] VITALS: BP 128/70
[2024-08-05 07:39] LABS: Hematocrit 35.1 % (39.0-52.0); Hemoglobin 11.6 g/dL (13.0-18.0); Mean Corpuscular Hgb 28.4 pg (27.0-31.0); Mean Platelet Volume 9.5 fL (7.4-10.4); Platelet Count 248 10^3/uL (130-400); Red Blood Cell Count 4.08 10^6/uL (4.70-6.10); White Blood Cell Count 7.5 10^3/uL (4.8-10.8)
[2024-08-05] MEDS: COZAAR 50 MG PO (07:58)
[2024-08-05] MEDS: ASPIR LOW (ENTERIC COATED) 81 MG PO (07:58)
--- NOTE | 2024-08-05 10:13 | W.PN.CRS1 ---
Today's Communication / Plan
-
no plans for OR
okay for d/c from our perspective
Assessment/Plan
-
74 yo male with a h/o HTN and diverticulitis complicated by abscess in November of this year. IR drain was placed at that time for management with noted improvement and drain was subsequently removed with follow up colonoscopy in January by Dr. Castro
demonstrating diverticular disease with polypectomy preformed. He was evaluated for bulging to the LLQ in the ED on 07/31. CT at that time read as a spigelian hernia and he was referred to surgery for follow up. He say Dr. Padilla in the outpatient
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
tomorrow. He developed fevers in the interim and presents for evaluation. Palpable lump to LLQ with erythema, not drainage. Tmax of 101.6, Leukocytosis present but trending down.
--IR drain in place, cultures pending
--C/W abx, finish course as an outpatient
--Trend labs/exams
--Continue low residue diet
--Medical management as per primary team
--Okay for d/c today from our perspective. Will need to follow up with Dr. Castro in the office in 2 weeks who will arrange for a drain study.
Subjective Data
Subjective Data
Date of Service: August 05, 2024
Patient states he feels better today. He has no nausea or vomiting. He has bowel function. He currently has no complaints.
Objective Data
-
Vital Signs
Temp Pulse Resp BP Pulse Ox
98.3 F 65 20 128/70 95
08/05/24 07:25 08/05/24 07:25 08/05/24 07:25 08/05/24 07:25 08/05/24 07:25
Intake & Output
08/04/24 08/05/24 08/06/24
06:59 06:59 06:59
Intake Total 910 / 910 2760 / 2760
Output Total 400 / 400 1295 / 1295
Balance 510 / 510 1465 / 1465
Intake:
Oral fluids 60 / 60 1200 / 1200
IV fluids (Total) 800 / 800 1350 / 1350
IV piggybacks 50 / 50 200 / 200
Amount instilled into Drain (
Total)
Left Lower Abdomen Placed in IR
Output:
Drain Output (Total)
Left Lower Abdomen Placed in IR
Urine, Voided 400 / 400 1200 / 1200
Lab Results
08/05/24 06:32
08/04/24 05:13
Physical Exam
-
General: No Acute Distress and AOx3
Abdomen: Soft, Non Distended, Non Tender and Other (drain- bloody)
Skin: Warm and Dry
--- NOTE | 2024-08-05 10:52 | W.PN.HOSP.TC ---
Addendum entered and electronically signed by Jonah Gomes DO 08/06/24 12:12:
CDI: Sepsis due to diverticular abscess with extension to the psoas muscle
Original Note:
Today's Communication/Plan
-
Transition to oral antibiotics
Discharge
Assessment / Plan
Assessment / Plan
#Acute complicated sigmoid diverticulitis
-Recurrent acute diverticulitis complicated by posterior wall perforation, sinus tract extending posteriorly into the left iliopsoas with communication to abscess
-LARGE 11.5 cm ABSCESS in the left iliopsoas muscle extending laterally over the left iliac crest into the left lower lateral abdominal wall.
-Patient without sirs and is non-toxic in appearance. Was on Augmentin as outpatient. Prior abscess culture with polymicrobial findings (E.coli, proteus)
-Status post IR drainage of abscess with SWATI drain left in place, red current jelly like output today
-Was transitioned from Augmentin to IV Zosyn while inpatient, no culture results at this time
-Plan to transition from IV Zosyn to oral metronidazole and ciprofloxacin at discharge, to complete 7-day course
-Will have home nursing for SWATI drain management, plan to see colorectal surgery in office 2 weeks after DC
#Asymptomatic bacteruria
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
-negative growth from 07/31
-urine cultures repeated 08/03 without growth
#Hernia - Left abdominal wall hernia
-monitor for now
-f/u with gen surgeon as outpatient
#HTN
- continue losartan with hold parameters
DVT PPX: lovenox sq
Diet: Low residue
Code status: Full Code
Anticipated Discharge: Within 24 hours
Subjective/Interval History
-
Date of Service: August 05, 2024
Seen and examined at the bedside. No acute events overnight. AFVSS this morning.
There remains considerable drainage on the SWATI tube. Seems deep red/blood colored.
He denies any acute complaints, states he feels generally well. Denies fevers or chills, nausea vomiting diarrhea, abdomen pain, chest pain or shortness of breath, urinary issues, abnormal bleeding or bruising, paresthesias or weakness.
Objective Data
-
Labs:
Laboratory Results
08/05/24
06:32
WBC 7.5
Hgb 11.6 L
Hct 35.1 L
Plt Count 248
Vital Signs:
Vital Signs
Temp Pulse Resp BP Pulse Ox
98.3 F 65 20 128/70 95
08/05/24 07:25 08/05/24 07:25 08/05/24 07:25 08/05/24 07:25 08/05/24 07:25
I&O
08/04/24 08/05/24 08/06/24
06:59 06:59 06:59
Intake Total 910 / 910 2760 / 2760
Output Total 400 / 400 1295 / 1295
Balance 510 / 510 1465 / 1465
Review of Systems
-
History Source: Patient
All other systems: Reviewed and negative
Physical Exam
-
General: Well Nourished, No Apparent Distress and Comfortable
HEENT: Normocephalic, Atraumatic, Moist Mucous Membranes and Anicteric
Respiratory: Clear to Auscultation and Non Labored Respirations; Negative Wheezes, Rales, Rhonchi or Accessory Resp Muscle Use
Cardiac: Regular Rhythm and S1/S2; Negative Murmur, Rub, JVD or Gallop
GI: Soft, Nontender, Nondistended, Normal Bowel Sounds and Other (SWATI tube with red/currant jelly-like appearance)
Musculoskeletal: No Clubbing, No Cyanosis and No Edema
Skin: Warm, Dry and Normal Turgor; Negative Rash or Jaundice
Neuro: AO x 3, Nonfocal/Grossly Intact and Central Nerve's Intact; Negative Tremors
Data Reviewed
-
Labs: Labs Reviewed by me and Discussed with Patient
--- NOTE | 2024-08-05 11:36 | VNURNOTE ---
Home Health Liaison met with patient at bedside to discuss [facility] nurse/therapy, visits, schedule and homebound status. Patient is agreeable and understands that visits at home will be 2-3 x per week to assess drain and teach medical management.
Offered [facility] contact info, patient declined. Patient is aware that [facility] will contact them for start of care in 1-2 days after discharge from .
[facility] referral completed in [facility].
--- NOTE | 2024-08-05 12:44 | CM ---
Chart reviewed and plan is to home with spouse and [facility] at discharge.
Plan; Home with [facility].
--- NOTE | 2024-08-05 13:56 | W.DCSUMMARY ---
Discharge Summary
Discharge Data
Date of Admission: 08/03/24
Date of Discharge: 08/05/24
-
Pending Results: Yes
Additional Pending Results:
Abscess culture
Hospital Course
74-year-old male with hypertension, hyperlipidemia, BPH, diverticulosis with previous history of complicated sigmoid diverticulitis. He presented to the hospital on with the complaint of abdominal bulging and pain. CT on arrival showed:
'acute diverticulitis of the proximal sigmoid colon with evidence for posterior wall perforation and a sinus tract extending posteriorly into the left iliopsoas muscle communicating with a LARGE 11.5 cm ABSCESS in the left iliopsoas muscle extending
laterally over the left iliac crest into the left lower lateral abdominal wall.
Additionally, the inflamed diverticulum is surrounded by inflammation and there is a bubble of extraluminal air surrounded by inflammation suggesting perforated diverticulitis. There is a sinus tract extending posteriorly from the sigmoid colon into
the left iliopsoas muscle. The sinus tract communicates with a large abscess in the anterior aspect of the left iliopsoas muscle which extends laterally over the superior aspect of the left iliac crest in the left lateral abdominal wall. The large
abscess measures 5.0 x 11.5 x 4.8 cm in AP, transverse, and craniocaudal dimensions and contains air and complex fluid. There is rim-enhancing enhancement of the wall around the abscess. There is a lateral bulge in the left lower abdominal wall
superior to the iliac crest at the site of the protruding abscess.'
The surgical team was consulted and SWATI drain was placed for abscess drainage. He was treated with IV Zosyn empirically for broad-spectrum gram-negative and anaerobic coverage. Following the procedure he handled an oral diet well, had normal bowel
function. He was seen by colorectal surgery as well as general surgery and interventional radiology in the hospital. He will have home nursing follow-up with him for SWATI drain irrigations, home monitoring of drain output. Plan to follow-up with
colorectal surgery in 2 weeks in the office. Plan is for eventual sigmoidectomy, likely in the timeline of 6 to 8 weeks after discharge from the hospital
Of note, he did have bacteriuria and signs of infection on his UA here though no symptoms of UTI. Imaging did show bladder diverticuli as well. Urine cultures x 2 without growth while in the hospital.
At discharge, he was prescribed 7 days of ciprofloxacin and Flagyl to complete 10 days of antibiotics for complicated diverticulitis.
Discharge Plan
-
Patient Disposition: Home (Routine Discharge)
Discharge Diagnosis/Procedures: Complicated diverticulitis with abscess
Condition: Good
Diet: Low Residue
Activity: As tolerated
Driving Restrictions: No driving for 24 hours
Wound Care: Flush drain daily with 0.9% sterile normal saline. Record drain output daily. If less than 5ml, call the colorectal surgery office. Otherwise, continue drain until your appointment with Dr. Castro.
Activity Restrictions/Additional Instructions:
Schedule follow-up appointment with your family doctor within 7 days of discharge from the hospital. You will need to attend your appointment with Dr. Castro in 2 weeks after your discharge. Please call their office to confirm scheduling.
Instructions: Low Fiber Diet
Referrals:
Gordy Castro MD [Active] - in two weeks
Marielos Luna MD [Family Provider] -
Additional Discharge Medication Instructions: Take ciprofloxacin 500 mg twice daily for 7 days after discharge from the hospital
Take metronidazole 500 mg 3 times daily for 7 days after discharge from the hospital
Prescriptions:
New
sodium chloride 0.9 % (flush) Syringe
10 ml intra-catheter DAILY Qty: 300 0RF
ciprofloxacin HCl 500 mg tablet
500 mg PO Q12H 7 Days Qty: 14 0RF
metronidazole 500 mg tablet
500 mg PO Q8H 7 Days Qty: 21 0RF
Continued
losartan 50 mg Tablet
50 mg PO DAILY
therapeutic multivitamin Tablet
1 tab PO DAILY
aspirin 81 mg Tablet,Delayed Release (Dr/Ec)
81 mg PO DAILY
acetaminophen [Tylenol Extra Strength] 500 mg Tablet
1,000 mg PO BIDPRN PRN (Reason: fever)
Sleep Aid
1 tab PO HSPRN PRN (Reason: sleep)
Discontinued
amoxicillin-pot clavulanate 875-125 mg tablet
1 tab PO Q12H Qty: 20 0RF
Discharge Orders:
Discharge Patient (As Directed); Ordered 08/05/24
Ordered By: Jonah Gomes
Discharge Date and Time
Print Language: CUBAN
--- NOTE | 2024-08-05 14:42 | CM ---
Home today with [facility].
Plan; Home with spouse and [facility]
[2024-08-05 15:15] VITALS: BP 129/61
--- NOTE | 2024-08-06 09:20 | PN.CDI ---
CDI
- -
CDI:
Physician Documentation Request
Admit Date: 08/03/24 21:27
Dear Doctor Eliseo,
Please review the following and provide your response in the progress notes.
Clinical Indicators:
- On admission WBC 13.3, Tmax 101.6, HR 90-100s
- 08/05 PN 'Acute complicated sigmoid diverticulitis'
- 'LARGE...ABSCESS in the left iliopsoas muscle extending...into the left lower lateral abdominal wall'
- 08/04 IR catheter placement indicates 'grossly purulent fluid'
- per H&P on Amoxicillin since November,
- IVF 3L given
- IV abx Zosyn
Please clarify which of the following most accurately describes the status of the patient's infection:
Sepsis due to psoas abscess
Localized Infection Only, Without Systemic Illness - psoas abscess
Other
Use of terms such as suspected, likely, concern for, or probable (associated with a specific diagnosis that is being evaluated, monitored, or treated as if it exists) are acceptable and can be coded in the inpatient setting, when documented at the
time of discharge.
Thank you,
Andre Erickson RN
CDI Specialist
Please use your independent medical judgment in providing your response.
== END 2024-08-05 15:43 | disposition home health service (06) | DRG 871 ==
LOC: 4 WEST ACU 21:27
PROVIDERS: Family Medicine; Radiology Vascular & Interventional Radiology; ADMITTING PHYSICIAN Internal Medicine; ATTENDING PHYSICIAN Internal Medicine; EMERGENCY PHYSICIAN Emergency Medicine; FAMILY PHYSICIAN Family Medicine; OTHER PHYSICIAN Surgery
PROC: 0W9F40Z Drainage of Abdominal Wall with Drainage Device, Percutaneous Endoscopic Approach (ICD-10-PCS; 2024-08-04)
DX: A41.9 Sepsis, unspecified organism (principal); K68.12 Psoas muscle abscess; K57.20 Diverticulitis of large intestine with perforation and abscess without bleeding; Z87.891 Personal history of nicotine dependence; I10 Essential (primary) hypertension; Z79.82 Long term (current) use of aspirin
CPT/HCPCS: 10030; 74177; 80048; 80053; 81003; 81015; 83605; 83735; 85025; 85027; 87040; 87070; 87077; 87086; 87186; 87205; 96365; 99152; 99153; 99285; C1729; C1769; Q9967

== ENCOUNTER → 2024-08-21 07:58 | Outpatient (REF) | payer MEDICARE, OTHER, SELFPAY ==
[2024-08-21 08:00] VITALS: BP 127/93; BP_SYST 63
== END ==
LOC: RADI 07:58
PROVIDERS: ATTENDING PHYSICIAN Surgery; FAMILY PHYSICIAN Family Medicine
DX: Z46.82 Encounter for fitting and adjustment of non-vascular catheter (principal); K65.1 Peritoneal abscess
CPT/HCPCS: 49424; 76080

== ENCOUNTER → 2024-09-16 06:32 | Outpatient (REF) | payer MEDICARE, OTHER, SELFPAY ==
[2024-09-16 09:04] LABS: PSA, Total - Screen 0.55 ng/ml (0.0-4.0)
== END ==
LOC: REG 06:32
PROVIDERS: ATTENDING PHYSICIAN Physician Assistant; FAMILY PHYSICIAN Family Medicine
DX: N52.9 Male erectile dysfunction, unspecified (principal); R53.83 Other fatigue; Z12.5 Encounter for screening for malignant neoplasm of prostate
CPT/HCPCS: 36415; 84403; G0103

== ENCOUNTER → 2024-10-18 09:09 | Outpatient (REF) | payer MEDICARE, OTHER, SELFPAY | LOC: HWRCS 09:09 | PROVIDERS: ATTENDING PHYSICIAN Internal Medicine Interventional Cardiology; FAMILY PHYSICIAN Family Medicine | DX: Z01.818 Encounter for other preprocedural examination (principal); R94.31 Abnormal electrocardiogram [ECG] [EKG] | CPT/HCPCS: 93306 ==

== ENCOUNTER 2024-10-25 06:08 | Inpatient (IN) | payer MEDICARE, OTHER, SELFPAY ==
[2024-10-15 08:49] LABS: Hematocrit 46.4 % (39.0-52.0); Hemoglobin 14.9 g/dL (13.0-18.0); Mean Corp Hgb Conc. 32.1 g/dL (33.0-37.0); Mean Corpuscular Volume 90.4 fL (80.0-94.0); Mean Platelet Volume 9.9 fL (7.4-10.4); Platelet Count 263 10^3/uL (130-400); Red Blood Cell Count 5.13 10^6/uL (4.70-6.10); Red Cell Dist. Width 15.1 % (11.5-14.5)
[2024-10-15 08:55] LABS: APTT 32.7 Sec (23.4-35.0); INR 0.94; PT 12.9 Sec (11.4-14.6)
[2024-10-15 09:06] LABS: ALT (SGPT) 31 U/L (0-50); AST (SGOT) 31 U/L (17-59); Albumin 4.2 g/dl (3.5-5.0); Alkaline Phosphatase 72 U/L (38-126); Blood Urea Nitrogen 25 mg/dl (9-20); Calcium 9.5 mg/dl (8.4-10.2); Carbon Dioxide 29 mmol/L (22-30); Chloride 105 mmol/L (98-107); Glucose 106 mg/dl (70-99); Potassium 4.9 mmol/L (3.5-5.1); Sodium 144 mmol/L (135-145); Total Bilirubin 0.4 mg/dl (0.2-1.3); Total Protein 6.9 g/dl (6.3-8.2); eGFR > 60.00
[2024-10-15 10:01] LABS: Glycohemoglobin (HgbA1c) 5.4 % (4.0-5.6)
[2024-10-15 10:07] VITALS: BMI 26.3
[2024-10-25] VITALS (17 sets, daily range): BP systolic 80–142; BP diastolic 45–80; BMI 26.3
[2024-10-25] MEDS: TYLENOL 1000 MG PO (06:29)
[2024-10-25] MEDS: HEPARIN 5000 UNITS SC (06:29)
[2024-10-25] MEDS: ENTEREG 12 MG PO (06:29)
--- NOTE | 2024-10-25 12:26 | W.IMMPOSTOP ---
Addendum entered and electronically signed by Gordy Castro MD 10/25/24 12:39:
Codi Elaine PA-C was assisted in the operation (see op note)
Original Note:
Surgical Immed Post Op Note
-
Primary Surgeon: Stephane Castro MD
Assistants: YOBANI García and MARY Rod
Pre-op Diagnosis: Sigmoid diverticulitis with abscess
Post-op Diagnosis: Same
Procedure Performed: Cystoscopy with bilateral ureteral stents/ICG (Dr. Nolan)
Robotic sigmoid colectomy withi intracorporeal anastomosis
Anesthesia Type: GET
Specimen / Cultures: Sigmoid colon (suture is proximal)
Estimated Blood Loss: 15cc
Complications: None
Operative Findings: Chronic inflammation of mid-sigmoid colon densely adherent to the left pelvis side wall
28mm EEA
Normal leak test
Patient's updated.
[2024-10-25] MEDS: TORADOL 15 MG IV ×2 (13:12→18:39)
--- NOTE | 2024-10-25 14:50 | PTCARENOTE ---
Pt received from the PACU via bed. Transport was w/o incident. Pt is AAOx3, HR sl irreg. SR with PVC's on quality assurance monitor final. Resp. are easy. VSS, Pt is afebrile. Abd with 4 Lap sites well approx. w/ surgi glue, no drainage noted. low abd incision
approx. and intact, no drainage noted. Pt denies nausea or pain at this time. Pt instructed on plan of care, and best method for voicing cares and concerns. Pt verbalized understanding of instructions. Call queen is within reach.
[2024-10-25] MEDS: TYLENOL 650 MG PO (18:40)
[2024-10-25] MEDS: NORMOSOL-R/PLASMALYTE-A 1000 IV (20:13)
[2024-10-25] MEDS: TYLENOL PO (20:21)
[2024-10-26] MEDS: TYLENOL PO ×2 (00:58→04:30)
[2024-10-26] MEDS: TORADOL 15 MG IV ×4 (01:02→18:53)
[2024-10-26 03:05] VITALS: BP 130/69
[2024-10-26 06:00] VITALS: BMI 26.0
[2024-10-26] MEDS: NORMOSOL-R/PLASMALYTE-A 1000 IV (06:02)
[2024-10-26 07:12] LABS: % Basophils 0.1 % (0-2); % Eosinophils 0.1 % (0-6); % Immature Granulocytes 0.2 % (0-0.5); % Lymphocytes 9.9 % (20.5-51.1); % Monocytes 8.2 % (1.7-9.3); % Neutrophils 81.5 % (42.2-75.2); Absolute Monocytes 0.9 10^3/uL (0.1-0.6); Absolute Neutrophils 8.5 10^3/uL (1.4-6.5); Hematocrit 40.2 % (39.0-52.0); Hemoglobin 13.8 g/dL (13.0-18.0); Mean Corp Hgb Conc. 34.3 g/dL (33.0-37.0); Mean Corpuscular Hgb 29.8 pg (27.0-31.0); Mean Corpuscular Volume 86.8 fL (80.0-94.0); Mean Platelet Volume 9.9 fL (7.4-10.4); Nucleated Red Blood Cells % 0 % (-); Platelet Count 234 10^3/uL (130-400); Red Blood Cell Count 4.63 10^6/uL (4.70-6.10); Red Cell Dist. Width 14.2 % (11.5-14.5); White Blood Cell Count 10.4 10^3/uL (4.8-10.8)
[2024-10-26 07:28] LABS: Blood Urea Nitrogen 22 mg/dl (9-20); Calcium 8.5 mg/dl (8.4-10.2); Carbon Dioxide 27 mmol/L (22-30); Chloride 101 mmol/L (98-107); Estimated Creatinine Clearance 82 ml/min; Glucose 129 mg/dl (70-99); Sodium 139 mmol/L (135-145); eGFR > 60.00
[2024-10-26 07:30] VITALS: BP 129/71
[2024-10-26] MEDS: TYLENOL 650 MG PO ×4 (08:31→20:09)
[2024-10-26] MEDS: ENTEREG 12 MG PO ×2 (08:32→20:09)
[2024-10-26] MEDS: ASPIR LOW (ENTERIC COATED) 81 MG PO (08:32)
[2024-10-26] MEDS: COZAAR PO (08:32)
[2024-10-26 10:55] VITALS: BP 124/60
--- NOTE | 2024-10-26 11:43 | W.PN.GS2 ---
Addendum entered and electronically signed by Rene Padilla MD 10/26/24 12:02:
I saw and examined the patient.
The Mortgage Coordinator's note was reviewed and I agree with the note.
Comment: OOBTC, pain controlled, feels well, passing flatus. Exam approp. Slight hematuria expected with stents. Labs stable. Will ADAT, advised him to go slow and back off if he develops nausea or abd discomfort after eating.
Original Note:
Today's Communication / Plan
-
Advancing diet
Assessment / Plan
-
Mr Duvall is a 74 yo male with a h/o sigmoid diverticulitis with abscess now POD #1 RAL sigmoidectomy with ureteral stents placed
AFVSS
Labs stable post op
2nd stent removed at bedside, some hematuria expected given recent instrumentation
--Advance diet as tolerated
--Void trial in am
--OOB/Ambulate
--Analgesics scheduled and prn
--Continued on home dosage of losartan
--IS while awake
--Lovenox and SCD's for VTE ppx
anticipate home tomorrow if tolerating diet advancements and pain controlled
Subjective Data
-
Date of Service: October 26, 2024
Patient seen and examined at bedside with Dr. Padilla. He denies n/v. OOB to chair. Pain is minimal. Passing some flatus.
Objective Data
-
Intake and Output
10/25/24 10/26/24 10/27/24
06:59 06:59 06:59
Intake Total 2610 / 2610
Output Total 1225 / 1225
Balance 1385 / 1385
Intake:
Oral fluids 960 / 960
IV fluids (Total) 1650 / 1650
normosol 450 / 450
Output:
Urine, [place] 1225 / 1225
Vital Signs
Temp Pulse Resp BP Pulse Ox
97.7 F 56 16 124/60 94
10/26/24 10:55 10/26/24 10:55 10/26/24 10:55 10/26/24 10:55 10/26/24 10:55
Lab Results
10/26/24 06:04
10/26/24 06:04
Calcium 8.5 mg/dl (8.4-10.2) 10/26/24 06:04
Total Bilirubin 0.4 mg/dl (0.2-1.3) 10/15/24 06:39
AST 31 U/L (17-59) 10/15/24 06:39
ALT 31 U/L (0-50) 10/15/24 06:39
Alkaline Phosphatase 72 U/L (38-126) 10/15/24 06:39
Total Protein 6.9 g/dl (6.3-8.2) 10/15/24 06:39
Albumin 4.2 g/dl (3.5-5.0) 10/15/24 06:39
Physical Exam
-
NAD
ABD soft, minimal incisional tenderness, ND, incisions with intact glue/no erythema
[place] with blood tinged urine: stent removed
[2024-10-26] MEDS: NORMOSOL-R/PLASMALYTE-A IV (11:52)
[2024-10-26 15:00] VITALS: BP 121/64
[2024-10-26] MEDS: LOVENOX 40 MG SC (17:29)
[2024-10-26 19:11] VITALS: BP 121/65
[2024-10-26 22:58] VITALS: BP 108/61
[2024-10-27] MEDS: TYLENOL PO ×2 (01:07→05:36)
[2024-10-27] MEDS: TORADOL 15 MG IV ×2 (01:59→06:04)
[2024-10-27 03:15] VITALS: BP 122/63
[2024-10-27 06:00] VITALS: BMI 26.3
[2024-10-27 07:05] VITALS: BP 153/77
[2024-10-27] MEDS: ENTEREG 12 MG PO (08:03)
[2024-10-27] MEDS: TYLENOL 650 MG PO (08:03)
[2024-10-27] MEDS: ASPIR LOW (ENTERIC COATED) 81 MG PO (08:03)
[2024-10-27] MEDS: COZAAR 50 MG PO (08:03)
--- NOTE | 2024-10-27 10:54 | W.PN.GS2 ---
Addendum entered and electronically signed by Rene Padilla MD 10/27/24 11:24:
I saw and examined the patient.
The Brand Advocate's note was reviewed and I agree with the note.
Comment: Doing well, curt diet, pain controlled, whitesied out this am and DTV, exam approp. Plan for DC home once voiding
Original Note:
Today's Communication / Plan
-
dispo planning
Assessment / Plan
-
Mr Duvall is a 74 yo male with a h/o sigmoid diverticulitis with abscess now POD #2 RAL sigmoidectomy with ureteral stents placed
AFVSS
Good bowel recovery
Voiding trial today
--Continue LRD
--OOB/Ambulate
--Analgesics scheduled and prn
--Continued on home dosage of losartan
--IS while awake
--Lovenox and SCD's for VTE ppx
discharge to home once voiding after whiteside removal
Subjective Data
-
Date of Service: October 27, 2024
Patient seen and examined at bedside with Dr. Padilla. Whiteside removed this am and due to void. Minimal post op discomfort. Tolerating diet without n/v. Passing flatus/stools. Notes he has been ambulating in hallway
Objective Data
-
Intake and Output
10/26/24 10/27/24 10/28/24
06:59 06:59 06:59
Intake Total 2610 / 2610 1700 / 1700
Output Total 1225 / 1225 825 / 825
Balance 1385 / 1385 875 / 875
Intake:
Oral fluids 960 / 960 1700 / 1700
IV fluids (Total) 1650 / 1650
normosol 450 / 450
Output:
Urine, [place] 1225 / 1225 550 / 550
Urine, Voided 275 / 275
Other:
Number of unmeasured liquid
stools
Rectum 2
Vital Signs
Temp Pulse Resp BP Pulse Ox
97.5 F 78 16 153/77 95
10/27/24 07:05 10/27/24 08:03 10/27/24 07:05 10/27/24 08:03 10/27/24 08:00
Lab Results
10/26/24 06:04
10/26/24 06:04
Calcium 8.5 mg/dl (8.4-10.2) 10/26/24 06:04
Total Bilirubin 0.4 mg/dl (0.2-1.3) 10/15/24 06:39
AST 31 U/L (17-59) 10/15/24 06:39
ALT 31 U/L (0-50) 10/15/24 06:39
Alkaline Phosphatase 72 U/L (38-126) 10/15/24 06:39
Total Protein 6.9 g/dl (6.3-8.2) 10/15/24 06:39
Albumin 4.2 g/dl (3.5-5.0) 10/15/24 06:39
Physical Exam
-
NAD
ABD soft, NT, ND, incisions with intact glue/no erythema
--- NOTE | 2024-10-27 10:59 | W.DCSUMMARY ---
Discharge Summary
Discharge Data
Date of Admission: 10/25/24
Date of Discharge: 10/27/24
-
Pending Results: No
Hospital Course
Mr Duvall is a 74 yo male with a history of complicated diverticulitis who presented for operative management with robotic assisted laparoscopic sigmoidectomy with cystoscopy for placement of ureteral stents for ureteral identification. Post
operatively, he did very well. Diet was able to be advanced and well tolerated with evidence of good bowel recovery. Stents were removed in a stepwise fashion with whiteside removal on date of discharge with successful voiding trial. Pain was minimal
post operatively and well controlled with oral agents. He was discharged to home with outpatient follow up in the coming weeks.
Discharge Plan
-
Patient Disposition: Home (Routine Discharge)
Discharge Diagnosis/Procedures: robotic sigmoidectomy
Condition: Good
Diet: Low Residue
Activity: No strenuous activity
Additional Activity: No lifting over 10lbs (gallon of milk)
Driving Restrictions: No driving for 1 week
Bathing Restrictions: OK to Shower
Wound Care: Allow glue to naturally fall off (do not pick at incisions)
Instructions: Low Fiber Diet
Referrals:
Gordy Castro MD [Active] - 11/11/24 8:00 am
Marielos Luna MD [Family Provider] -
Additional Discharge Medication Instructions: Tylenol or Ibuprofen as needed for pain. Maximum dose of Tylenol is 4,000mg in 24 hours. Maximum dose of Ibuprofen is 3,200mg in 24 hours.
Prescriptions:
New
oxycodone 5 mg tablet
5 mg PO Q4HPRN PRN (Reason: breakthrough/severe pain) Qty: 10 0RF
Continued
losartan 50 mg Tablet
50 mg PO DAILY
therapeutic multivitamin Tablet
1 tab PO DAILY
aspirin 81 mg Tablet,Delayed Release (Dr/Ec)
81 mg PO DAILY
acetaminophen [Tylenol Extra Strength] 500 mg Tablet
1,000 mg PO BIDPRN PRN (Reason: pain)
diphenhydramine HCl [Sleep Aid (diphenhydramine)] 25 mg Capsule
25 mg PO HS PRN (Reason: sleep)
Discontinued
Sutab 1.479-0.188- 0.225 gram Tablet
0 tab PO PER PKG DIR
metronidazole [Flagyl] 500 mg Tablet
500 mg PO .PERPROTOCOL
Patient Comments:
took at 1400,1500,and 2200
neomycin 500 mg Tablet
1 g PO .PERPROTOCOL
Patient Comments:
took at 1400,1500,and 2200
Discharge Orders:
Discharge Patient (As Directed); Ordered 10/27/24
Ordered By: Phyllis Wilson
Discharge Date and Time
Print Language: SURINAMESE
[2024-10-27 11:00] VITALS: BP 141/73
--- NOTE | 2024-10-27 11:07 | CM ---
Met with pt at bedside
Reports he lives with his in a 2 story home;2 steps to enter, 13 steps to 2nd fl
Active, driving, retired
DME - none
SNF - denies past hx
[facility] in past
Has ride at discharge
PCP - Marielos Luna
pharm - [facility]
Pt for discharge today - to transport
Discussed IMM
Plan - home no needs
== END 2024-10-27 12:40 | disposition home or self-care (01) | DRG 331 ==
LOC: 2 SOUTH 06:08
PROVIDERS: Physician Assistant; ADMITTING PHYSICIAN Surgery; FAMILY PHYSICIAN Family Medicine
PROC: 8E0W4CZ Robotic Assisted Procedure of Trunk Region, Percutaneous Endoscopic Approach (ICD-10-PCS; 2024-10-25)
PROC: 0DBN4ZZ Excision of Sigmoid Colon, Percutaneous Endoscopic Approach (ICD-10-PCS; 2024-10-25)
DX: K57.20 Diverticulitis of large intestine with perforation and abscess without bleeding (principal); Z79.82 Long term (current) use of aspirin; I10 Essential (primary) hypertension; N40.0 Benign prostatic hyperplasia without lower urinary tract symptoms; Z96.643 Presence of artificial hip joint, bilateral; Z80.9 Family history of malignant neoplasm, unspecified; Z82.61 Family history of arthritis; Z87.891 Personal history of nicotine dependence
CPT/HCPCS: 88307; 36415; 80048; 80053; 83036; 85025; 85027; 85610; 85730; 86850; 86900; 86901; J1335

== ENCOUNTER → 2025-11-05 06:28 | Outpatient (REF) | payer MEDICARE, OTHER, SELFPAY ==
[2025-11-05 07:52] LABS: Hematocrit 46.1 % (39.0-52.0); Hemoglobin 16.2 g/dL (13.0-18.0); Mean Corp Hgb Conc. 35.1 g/dL (33.0-37.0); Mean Corpuscular Volume 88.8 fL (80.0-94.0); Nucleated Red Blood Cells % 0 % (-); Platelet Count 224 10^3/uL (130-400); Red Cell Dist. Width 12.8 % (11.5-14.5)
[2025-11-05 08:29] LABS: ALT (SGPT) 31 U/L (0-50); AST (SGOT) 31 U/L (17-59); Albumin 4.4 g/dl (3.5-5.0); Alkaline Phosphatase 65 U/L (38-126); Blood Urea Nitrogen 22 mg/dl (9-20); Calcium 9.4 mg/dl (8.4-10.2); Carbon Dioxide 28 mmol/L (22-30); Chloride 103 mmol/L (98-107); Glucose 112 mg/dl (70-99); HDL Cholesterol 58 mg/dl; LDL Cholesterol, Calculated 127 mg/dl; Potassium 4.5 mmol/L (3.5-5.1); Sodium 138 mmol/L (135-145); Total Protein 7.0 g/dl (6.3-8.2); Very Low Density Lipoprotein 17 mg/dl (0-30); eGFR > 60.00
[2025-11-05 08:42] LABS: Glycohemoglobin (HgbA1c) 5.6 % (4.0-5.9)
[2025-11-05 08:59] LABS: PSA, Total - Screen 0.51 ng/ml (0.0-4.0)
== END ==
LOC: REG 06:28
PROVIDERS: ATTENDING PHYSICIAN Family Medicine
DX: I10 Essential (primary) hypertension (principal); R73.01 Impaired fasting glucose; E78.2 Mixed hyperlipidemia; Z12.5 Encounter for screening for malignant neoplasm of prostate
CPT/HCPCS: 36415; 80053; 80061; 83036; 85025; G0103